=== PATIENT | male | born 1995 | race Caucasian/White ===

== ENCOUNTER 2018-02-25 19:43 | Emergency (ER) | payer OTHER ==
[~2018-02-25] VITALS: Ht 177.8 cm; Wt 72.6 kg
--- NOTE | 2018-02-25 19:55 | ED UPPER/LOWER EXTREMITY COMPL ---
History of Present Illness General Chief Complaint: Lower Extremity Problems Stated Complaint: "UM I TWISTED MY ANKLE 3 WKS AGO" Source: patient Exam Limitations: no limitations Vital Signs & Intake/Output Vital Signs & Intake/Output Vital Signs Date Time Temp Pulse Resp B/P B/P Pulse O2 O2 Flow FiO2 Mean Ox Delivery Rate 02/26 2136 99 Room Air 02/25 2134 98.1 71 16 119/72 99 Room Air 02/25 1955 98.6 83 20 150/95 100 Room Air Allergies Coded Allergies: No Known Allergies (02/25/18) Triage Nurses Notes Reviewed? yes Onset: Gradual Duration: week(s): Timing: recent history Severity: moderate Pain/Injury Location: Right: Knee. Method of Injury: right knee sprain Modifying Factors: Improves With: rest. Worsens With: movement. Associated Symptoms: swelling HPI: 22 YO gentleman presents with right ankle pain. He shares that he sprained it 3 weeks ago, and that it is not getting better. "I still feel pain... it is swollen... and it hurts to walk." He denies new trauma, only discomfort with ambulating and swelling. He is otherwise well. Past History Travel History Traveled to [place] past 21 day No Medical History Any Pertinent Medical History? none Surgical History Surgical History: none Family History Hx Contributory? No Review of Systems Review of Systems Constitutional: Reports: no symptoms. EENTM: Reports: no symptoms. Respiratory: Reports: no symptoms. Cardiovascular: Reports: no symptoms. Gastrointestinal/Abdominal: Reports: no symptoms. Genitourinary: Reports: no symptoms. Musculoskeletal: Reports: no symptoms. Skin: Reports: no symptoms. Neurological/Psychological: Reports: no symptoms. Hematologic/Endocrine: Reports: no symptoms. Immunological: Reports: no symptoms. All Other Systems: Reviewed and Negative Physical Exam Physical Exam General Appearance: well developed/nourished, mild distress Head: atraumatic Eyes: Bilateral: normal appearance. Ears, Nose, Throat: normal pharynx, normal ENT inspection Neck: normal inspection, supple, full range of motion Cardiovascular/Respiratory: no respiratory distress Foot Right: mild swelling diffusely at right ankle. pt able to ambulate, 2+ distal pulse. no focal bony tenderness. Progress Differential Diagnosis: fracture, sprain, tendon injury Plan of Care: Orders Procedure Date/time Status Durable Medical Equipment 02/26 2116 Active Diagnostic Imaging: Viewed by Me: Radiology Read. Discussed w/RAD: Radiology Read. Radiology Impression: PATIENT: ROMAN BARRAGAN PRESENT AGE: 22 PATIENT ACCOUNT NO: [id number] : 97 LOCATION: [facility] ORDERING PHYSICIAN: Garret Asencio MD SERVICE DATE: 02/25/18 EXAM TYPE: RAD - XRY-ANKLE 3 OR MORE VIEWS R; XRY-FOOT COMPLETE, R EXAMINATION: RIGHT ANKLE AND RIGHT FOOT. CLINICAL INFORMATION: Right ankle pain x3 weeks COMPARISON: None TECHNIQUE: Right ankle 3 views. Right foot 3 views. FINDINGS: RIGHT ANKLE: There is no visible acute fracture, dislocation or subluxation. The ankle mortise and subtalar joints are normal. RIGHT FOOT: There is no visible acute fracture, dislocation or soft tissue abnormality. The ankle mortise and subtalar joints are normal. IMPRESSION: Unremarkable right ankle and right foot exam. DICTATED BY: Aleksander Naranjo MD DATE/TIME DICTATED:02/25/182033 HOT DIP GALVANIZER:HUGH DATE/TIME TRANSCRIBED:02/25/182033 CONFIDENTIAL, DO NOT COPY WITHOUT APPROPRIATE AUTHORIZATION. <Electronically signed in Other Vendor System> SIGNED BY: Aleksander Naranjo MD 02/25/182039 Departure Departure Disposition: HOME OR SELF CARE Condition: Stable Clinical Impression Primary Impression: Right ankle sprain Departure Forms: Customer Survey General Discharge Information Comments 02/25/18, 21:00... pt comfortable in the ED... no sign of fracture... pt given nora wrap and crutches... safe for discharge.
--- NOTE | 2018-02-25 20:40 | RADIOLOGY REPORT ---
EXAMINATION: RIGHT ANKLE AND RIGHT FOOT. CLINICAL INFORMATION: Right ankle pain x3 weeks COMPARISON: None TECHNIQUE: Right ankle 3 views. Right foot 3 views. FINDINGS: RIGHT ANKLE: There is no visible acute fracture, dislocation or subluxation. The ankle mortise and subtalar joints are normal. RIGHT FOOT: There is no visible acute fracture, dislocation or soft tissue abnormality. The ankle mortise and subtalar joints are normal. IMPRESSION: Unremarkable right ankle and right foot exam.
[2018-02-25 21:34] VITALS: BP 119/72
== END 2018-02-25 21:37 ==
LOC: ERH 19:43
DX: S93.401A Sprain of unspecified ligament of right ankle, initial encounter (principal); X58.XXXA Exposure to other specified factors, initial encounter; Y92.9 Unspecified place or not applicable; Y93.9 Activity, unspecified
CPT/HCPCS: 73610-RT; 73630-RT